=== PATIENT | male | born 1965 | race Caucasian/White ===

== ENCOUNTER 2018-12-10 12:08 | Outpatient (REF) | payer BC, SELFPAY ==
--- NOTE | 2018-12-10 10:00 | SKI_PTH ---
PATIENT: Malachi Yeh LOC: [facility] U#:[id number] AGE/SX: 53/M ROOM: RE12/10/[address]: Mendez [address] : 1965 BED: DIS: 12/10/2018 SPEC #: [id number] RECD: 12/10/18 13:12 STATUS: CICI BELLAMY #: [id number] BOB: 12/10/18 10:[address]: Mendez Lane DEPT: Surgical Specimen RECD BY: Trudy Bergman Tissues: 1 - SKIN BIOPSY(SHAVE/PUNCH) Procedures: SKIN LEVEL 4 Comments: [id number]
== END 2018-12-10 12:28 ==
LOC: NCHCN 12:08
PROVIDERS: PCP Family Medicine; Visit Provider Family Medicine
DX: L82.1 Other seborrheic keratosis (principal)
CPT/HCPCS: 88305

== ENCOUNTER 2020-03-05 10:26 | Outpatient (REF) | payer BC, SELFPAY ==
[2020-03-05 16:48] LABS: Calculated LDL 92 mg/dL (<100); Cholesterol 149 mg/dL (<200); HDL Cholesterol 46 mg/dL (40-60); Triglyceride 57 mg/dL (<150)
[2020-03-06 11:33] LABS: Hepatitis C Ab w Rflx HCV PCR Negative (Negative)
== END 2020-03-05 10:46 ==
LOC: NCHCN 10:26
PROVIDERS: PCP Family Medicine; Visit Provider Family Medicine
DX: Z00.00 Encounter for general adult medical examination without abnormal findings (principal); Z11.59 Encounter for screening for other viral diseases; Z13.220 Encounter for screening for lipoid disorders
CPT/HCPCS: 80061; 86803

== ENCOUNTER 2022-03-25 23:01 | Emergency (ER) | payer BC, SELFPAY ==
[2022-03-25 23:17] VITALS: BP 111/82; PULSE 58; RESP 18; TEMP 36.8; O2SAT 99
--- NOTE | 2022-03-25 23:45 | W.ED.GENAD ---
Discharge Plan Disposition Patient Disposition: HOME Condition: Stable Discharge Details Clinical Impression: Pain, dental Primary Care Provider: Mendez Lane ED Provider: Brock Mehta Home Meds and New Rx's Prescriptions: New amoxicillin-pot clavulanate 875-125 mg tablet 1 tab PO BID Qty: 14 0RF Continued ibuprofen 600 MG tablet 600 mg PO Q6H PRN (Reason: Pain) Qty: 20 0RF No Action diazepam [Valium] 5 MG tablet 5 mg PO TID PRN (Reason: Muscle Spasm) Qty: 12 0RF Discharge Instructions Instructions: Toothache (ED) Additional Instructions: follow up with your dentist as soon as possible if you feel more ill, have worsening pain or trouble swallowing liquids return to the emergency department Medical Decision Making 56 yo male comes in with right lower mid molar pain that he states has a crown on it for 2 days. He states he went for a routine tooth cleaning and started to have irriation of all his gums after but that resolved and localized to just the previously mentioned tooth. Denies fevers, difficulty swallowing or jaw swelling. He is in no distress on exam speaking clearly and swallowing normally. He has normal posterior pharynx with midline uvula, and he has a mid right lower molar with a crown on it and the gums around it are erythematous compared to the other gums, no visible abscess. No submandibular swelling or restricted neck movements. Suspect pulpitis vs issue with his crown, no findings to suggest ludwigs. Will start him on augmentin and advised to f/u with his dentist and return precautions given Differential Diagnosis Differential Diagnosis: pulpititis, broken crown, abscess HPI General Mode of arrival: ambulatory. Date/Time Provider Initiated Documentation: 03/25/22 23:02. Limitations to Documentation: no limitations. Information obtained by: patient. History of Present Illness 56 year old M presents to the emergency department with the chief complaint of right lower mid molar pain, described as moderate, Quality is described as aching, Patient started experiencing this day(s) (2) and it has been constant. No relieving factors improve symptom(s), No exacerbating factors reported . Patient notes no other symptoms.. Related Data Home Medications Medication Instructions Recorded Confirmed diazepam 5 mg tablet (Valium) 5 mg PO TID PRN Muscle Spasm ##12 10/22/17 ibuprofen 600 mg tablet 600 mg PO Q6H PRN Pain #20 tabs 10/22/17 amoxicillin 875 mg-potassium 1 tab PO BID #14 tabs 03/25/22 clavulanate 125 mg tablet Previous Rx's Medication Instructions Recorded diazepam 5 mg tablet (Valium) 5 mg PO TID PRN Muscle Spasm ##12 10/22/17 ibuprofen 600 mg tablet 600 mg PO Q6H PRN Pain #20 tabs 10/22/17 amoxicillin 875 mg-potassium 1 tab PO BID #14 tabs 03/25/22 clavulanate 125 mg tablet Allergies Allergy/AdvReac Type Severity Reaction Status Date / Time ciprofloxacin [From Cipro] Allergy Mild Skin Rash Unverified 03/25/22 23:20 oxycodone AdvReac Intermediate Nausea Unverified 03/25/22 23:20 General Stated Complaint: DentalOral GUS: 4 Review of Systems All systems reviewed & are unremarkable except as noted in HPI and below Constitutional Constitutional: Denies chills and Denies fever(s) ENT Ears, Nose, Mouth, and Throat: Denies change in voice Cardiovascular Cardiovascular: Denies chest pain and Denies dyspnea Respiratory Respiratory: Denies dyspnea Gastrointestinal Gastrointestinal: Denies abdominal pain and Denies vomiting PFSH All Active Problems (Updated 03/25/22 @ 23:49 by Brock Mehta MD) Pain, dental (Acute) Surgical History (Updated 07/04/18 @ 14:36 by [employer] MA) Colonoscopy - IV Sedation Repair of inguinal hernia Right. 2010. Social History Smoking/Tobacco Use Status: Never Smoking risk assessment performed?: Yes Alcohol Intake: current Alcohol Intake frequency: a few times a week Drug use: Never Substance use type: does not use Do you feel safe at home: Yes Do you feel safe in your relationship?: Yes Exam Const General: no acute distress Orientation: alert HENMT Head: normal to inspection Ears: external ears normal General nose exam: external nose normal Mouth: moist mucous membranes Eyes General: appearance normal, both eyes and all related structures Neck Neck: normal visual inspection Resp Effort & Inspection: normal respiratory effort and able to speak in complete sentences Cardio Rate: regular rate Skin General skin exam: no rashes or lesions noted Neuro General: patient alert and patient oriented x3 Extrem General: normal to inspection Psych Mental Status: mental status grossly normal Course Vital Signs Vital signs: Vital Signs Temperature 36.8 C 03/25/22 23:17 Pulse 58 L 03/25/22 23:17 Respiratory Rate 18 03/25/22 23:17 Blood Pressure 111/82 03/25/22 23:17 Pulse Oximetry 99 03/25/22 23:17 Temperature 36.8 C 03/25/22 23:17 Temperature Source Temporal Artery Scan 03/25/22 23:17 Pulse 58 L 03/25/22 23:17 Respiratory Rate 18 03/25/22 23:17 Respiratory Effort Non-Labored 03/25/22 23:21 Blood Pressure 111/82 03/25/22 23:17 Blood Pressure Position Sitting 03/25/22 23:17 Pulse Oximetry 99 03/25/22 23:17 Oxygen Delivery Method Room Air 03/25/22 23:17 Oxygen Flow Rate 0 03/25/22 23:17 PAWSS Have you Been Recently Intoxicated or Drunk Within the Last 30 days?: No Have you Ever Experienced Previous Episodes of Alcohol Withdrawal?: No Have you ever Experienced Withdrawal Seizures?: No Have you ever Experienced Delirium Tremens(DT)s?: No Have you ever undergone Alcohol Rehabilitation Treatment (i.e, inpt ot outpatient treatment programs)?: No Have you ever Experienced Blackouts?: No Have you ever Combined Alcohol with other Downers within the last 90 days?: No Have you ever Combined Alcohol with any other Substance of Abuse during the last 90 days?: No Positive Blood Alcohol level on Presentation? [PCS.BAL]: No Evidence of Increased Autonomic Activity (i.e. HR>120, tremor, sweating, agitation, nausea)?: No Result: 0
[2022-03-25] MEDS: Amoxicillin 875/Clav. 125 TAB PO (23:53)
== END 2022-03-26 00:15 | disposition home or self-care (01) ==
PROVIDERS: Emergency Provider Emergency Medicine; PCP Family Medicine
DX: K08.89 Other specified disorders of teeth and supporting structures (principal)
CPT/HCPCS: 99283

== ENCOUNTER 2022-06-16 00:13 | Emergency (ER) | payer BC, SELFPAY ==
[2022-06-16 00:30] VITALS: BP 134/84; PULSE 55; RESP 16; TEMP 36.3; O2SAT 100
--- NOTE | 2022-06-16 00:33 | ED.GENADUL_ITS ---
Discharge Plan Disposition Patient Disposition: HOME Condition: Good Discharge Details Clinical Impression: Dental infection Primary Care Provider: Mendez Lane ED Provider: Lisandro Kramer Eleva Meds and New Rx's Prescriptions: New amoxicillin-pot clavulanate 875-125 mg tablet 1 tab PO BID Qty: 20 0RF No Action ibuprofen 600 MG tablet 600 mg PO Q6H PRN (Reason: Pain) Qty: 20 0RF Discharge Instructions Additional Instructions: You appear to have a recurrent infection related to partially completed root canal. We will place you on Augmentin and have you keep your appointment for follow-up with your publication manager. You may alternate acetaminophen with ibuprofen as we discussed. You may also try using the benzocaine as an anesthetic to help relieve the pain. You should return to the ED if you have worsening pain, facial swelling redness, difficulty breathing, inability to swallow, other concerns. Medical Decision Making Patient likely with dental infection related to partial root canal with temporary filling. Currently no drainable abscess identified. No evidence of Abdi's or facial cellulitis. Patient previously on Augmentin for similar type infection this summer which led to the root canal being started. He looks well. We will restart the Augmentin. He will alternate acetaminophen with ibuprofen for pain. May also try mucosal benzocaine which we will give to him to help control pain. Follow-up with his publication manager as planned. Return precautions discussed. HPI General Mode of arrival: ambulatory . Date/Time Provider Initiated Documentation: 06/16/22 00:33 . Limitations to Documentation: no limitations . Information obtained by: patient . HPI Narrative: Patient presents to ED with right lower tooth pain that started this afternoon and is keeping him up tonight. Is a throbbing dull pain. He is in the process of having this tooth repaired and requires a follow-up appointment which is later this month to complete the root canal that was started. He has a temporary filling in place. He has no facial pain or swelling. He has no fever. He has no difficulty breathing. He has no difficulty swallowing. Related Data Home Medications Medication Instructions Recorded Confirmed ibuprofen 600 mg tablet 600 mg PO Q6H PRN Pain #20 tabs 10/22/18 06/16/22 amoxicillin 875 mg-potassium 1 tab PO BID #20 tabs 06/16/22 clavulanate 125 mg tablet Previous Rx's Medication Instructions Recorded ibuprofen 600 mg tablet 600 mg PO Q6H PRN Pain #20 tabs 10/22/17 amoxicillin 875 mg-potassium 1 tab PO BID #20 tabs 06/16/22 clavulanate 125 mg tablet Allergies Allergy/AdvReac Type Severity Reaction Status Date / Time ciprofloxacin [From Cipro] Allergy Mild Skin Rash Unverified 06/16/22 00:32 oxycodone AdvReac Intermediate Nausea Unverified 06/16/22 00:32 General Stated Complaint: DentalOral GUS: 4 Review of Systems Narrative: 01/29 Review of Systems completed and is negative except as stated above in HPI (Systems reviewed: Const, Resp, CV, GI, Neuro) PFSH All Active Problems Dental infection (Acute) Surgical History Colonoscopy - IV Sedation Repair of inguinal hernia Right. 2010. Social History Smoking/Tobacco Use Status: Never Smoking risk assessment performed?: Yes Alcohol Intake: current Alcohol Intake frequency: a few times a week Drug use: Never Substance use type: does not use Do you feel safe at home: Yes Do you feel safe in your relationship?: Yes Exam Narrative Exam Narrative: Const: WDWN male in NAD. HEENT: NC/AT. Normal facial exam. Right lower premolar with temporary filling in place. Percussion tenderness present. No gingival abscess appreciated. Floor the mouth soft. Eyes: Normal conjunctiva and sclera. Neck: Supple. Trachea midline. No cervical adenopathy. Lungs: Normal respiratory effort. Neuro: A+O x 3. Normal speech, mentation, gait. Cranial nerves II - XII grossly intact. No gross motor or sensory deficit. Ext: No C/C/E. Skin: Warm and dry without erythema. Course Vital Signs Vital signs: Vital Signs Temperature 97.3 F L 06/16/22 00:30 Pulse 55 L 06/16/22 00:30 Respiratory Rate 16 06/16/22 00:30 Blood Pressure 134/84 06/16/22 00:30 Pulse Oximetry 100 06/16/22 00:30 Temperature 97.3 F L 06/16/22 00:30 Temperature Source Temporal Artery Scan 06/16/22 00:30 Pulse 55 L 06/16/22 00:30 Respiratory Rate 16 06/16/22 00:30 Respiratory Effort 06/16/22 00:30 Blood Pressure 134/84 06/16/22 00:30 Blood Pressure Position Sitting 06/16/22 00:30 Pulse Oximetry 100 06/16/22 00:30 Oxygen Delivery Method Room Air 06/16/22 00:30 Oxygen Flow Rate 0 06/16/22 00:30 Pain Level 4 06/16/22 00:30
[2022-06-16] MEDS: Amoxicillin 875/Clav. 125 TAB PO (00:46)
[2022-06-16] MEDS: Benzocaine 20% Gel 30 GM JAR MM (00:46)
== END 2022-06-16 01:05 | disposition home or self-care (01) ==
PROVIDERS: Emergency Provider Emergency Medicine; PCP Family Medicine
DX: K04.7 Periapical abscess without sinus (principal)
CPT/HCPCS: 99283; 99284

== ENCOUNTER 2024-04-30 15:13 | Outpatient (REF) | payer BC, SELFPAY ==
[2024-04-30 17:11] LABS: Calculated LDL 95 mg/dL (<100); Cholesterol 160 mg/dL (<200); HDL Cholesterol 54 mg/dL (40-60); Triglyceride 56 mg/dL (<150)
[2024-04-30 18:12] LABS: Hemoglobin A1C 5.4 % (<5.7)
== END 2024-04-30 15:14 | disposition home or self-care (01) ==
LOC: NCHCN 15:13
PROVIDERS: PCP Student in an Organized Health Care Education/Training Program; Visit Provider Student in an Organized Health Care Education/Training Program
DX: Z13.1 Encounter for screening for diabetes mellitus (principal); Z13.220 Encounter for screening for lipoid disorders
CPT/HCPCS: 80061; 83036